=== PATIENT | male | born 1950 | race Two or more races ===

== ENCOUNTER 2024-05-02 15:45 | Emergency (ER) | payer OTHER ==
[~2024-05-02] VITALS: Ht 165.1 cm; Wt 55.3 kg
[2024-05-02] MEDS ORDERED: LOTREL 5-10 MG1 CAP PO (16:08)
[2024-05-02] MEDS ORDERED: FAMOTIDINE/PF 20 MG/2 ML VIAL IV ONE (17:30)
[2024-05-02] MEDS ORDERED: 0.9 % SODIUM CHLORIDE 500 ML IV ONE (17:30)
[2024-05-02] MEDS ORDERED: ONDANSETRON HCL 2 MG/ML VIAL IV ONE (17:30)
[2024-05-02] MEDS ORDERED: FAMOTIDINE/PF 20 MG/2 ML VIAL ONE (17:38)
[2024-05-02] MEDS ORDERED: ONDANSETRON HCL 2 MG/ML VIAL ONE (17:38)
[2024-05-02 18:54] LABS: HEMATOCRIT 26.2 % (39.0-48.0); HEMOGLOBIN 9.3 g/dL (13-16.00); MEAN CELL VOLUME 93.5 fL (80.0-100.00); MEAN CORPUSCULAR HEMOGLOBIN 33.2 pg (27.00-32.0); MEAN CORPUSCULAR HGB CONC 35.5 g/dl (32.0-36.0); RED CELL DISTRIBUTION WIDTH 15.5 % (11.5-14.5)
[2024-05-02 19:29] LABS: ALBUMIN 2.7 gm/dL (3.4-5.0); BILIRUBIN TOTAL 0.74 mg/dL (0.3-1.2); CALCIUM 8.2 mg/dL (8.5-10.1); CREATININE SERUM 1.55 mg/dL (0.70-1.30); GFR 44.29; GLOBULINA 3.3 G/DL (2.4-3.5); POTASSIUM 4.17 mEq/L (3.5-5.1)
[2024-05-02 19:30] LABS: PH,URINE 5.5 (5.0-8.0); URINE APPEARANCE Clear; URINE BILIRRUBIN Negative (NEGATIVE); URINE BLOOD Negative; URINE COLOR Dark Yellow; URINE GLUCOSE Negative (NEGATIVE); URINE KETONE Trace (NEGATIVE); URINE LEUKOCYTE Trace; URINE NITRATE Negative; URINE PROTEIN Trace (NEGATIVE)
[2024-05-02 19:34] LABS: URINE BACTERIA 41.6 uL (0.0-1933); URINE RBC 7.8 uL (0.0-20.8); URINE WBC 5.5 uL (0.0-23.2)
[2024-05-02 19:46] LABS: PLATELET COUNT 42 K/uL (150-450)
[2024-05-02 19:53] LABS: URINE CAST > 21.83 uL (0.0-1.40)
== END 2024-05-02 22:35 ==
LOC: ER 15:48
PROVIDERS: General Practice
DX: R53.81 Other malaise (principal); I10 Essential (primary) hypertension; R59.1 Generalized enlarged lymph nodes
CPT/HCPCS: 36415; 70450; 74177; 93005; 96365; 99284; J2405; J3490; J7042; Q9965